=== PATIENT | male | born 1960 | race African-American/Black ===

== ENCOUNTER 2017-01-07 12:04 | Inpatient (IN) | payer BC, MEDICAID, OTHER ==
[~2017-01-07] VITALS: Ht 153.9 cm; Wt 69.4 kg
[~2017-01-07 12:04] MED LIST: ASPI-1159 PO; LEVO100T9 PO; LISI10TA5 PO
[2017-01-07] MEDS ORDERED: SODIUM CHLORIDE 0.9% 10ML VIAL ONE (13:56)
[2017-01-07] MEDS ORDERED: IOHEXOL-300 100 ML BOTTLE ONE (13:56)
[2017-01-07] MEDS ORDERED: SODIUM CHLORIDE 0.9% 1,000 ML IV ONE (14:04)
[2017-01-07 14:47] LABS: BASOPHILS % 1.3 % (0.0-2.0); HEMATOCRIT. 40.4 % (42.0-52.0); HEMOGLOBIN. 13.3 g/dL (14.0-18.0); LYMPHOCYTES % 22.4 % (20.0-50.0); MEAN CORPUSCULAR HEMOGLOBIN 28.3 pg (28.0-32.0); MEAN CORPUSCULAR VOLUME 86.1 fL (80.0-94.0); MEAN PLATELET VOLUME 8.8 fl (7.4-10.4); MONOCYTES % 7.6 % (2.0-8.0); NEUTROPHILS % 61.7 % (40.0-76.0); PLATELET 189 x1000/uL (130-400); RED CELL DISTRIBUTION WIDTH 15.1 % (11.6-14.6)
[2017-01-07 14:58] LABS: CARBON DIOXIDE 29 mEq/L (21-32); CHLORIDE 108 mEq/L (98-107)
[2017-01-07 16:00] VITALS: BP 141/96
[2017-01-07 16:02] LABS: PROTHROMBIN TIME 10.5 sec (9.4-11.6)
[2017-01-07 16:35] LABS: CLARITY URINE CLEAR (CLEAR); COLOR URINE YELLOW (YELLOW); GLUCOSE URINE NEGATIVE (NEGATIVE); KETONES URINE NEGATIVE (NEGATIVE); LEUKOCYTE ESTERASE URINE NEGATIVE (NEGATIVE); NITRITE URINE NEGATIVE (NEGATIVE); OCCULT BLOOD URINE NEGATIVE (NEGATIVE); PROTEIN URINE NEGATIVE (NEGATIVE); SPECIFIC GRAVITY URINE 1.009 (1.005-1.030); UROBILINOGEN URINE 0.2 E.U./dL (0.2-1.0)
[2017-01-07] MEDS ORDERED: MAGNESIUM/ALUMINUM HYDROXIDE/SIMETHICONE 30ML UDC PO PRN (16:45)
[2017-01-07] MEDS ORDERED: ZOLPIDEM TARTRATE 5MG TABLET PO PRN (16:45)
[2017-01-07] MEDS ORDERED: NITROGLYCERIN 0.4MG TABLET SL SL PRN (16:45)
[2017-01-07] MEDS ORDERED: NA PHOS,M-B/NA PHOS,DI-BA ENEMA 118ML PR PRN (16:45)
[2017-01-07] MEDS ORDERED: ONDANSETRON HCL 4MG/2ML VIAL IV PRN (16:45)
[2017-01-07] MEDS ORDERED: ACETAMINOPHEN 325MG TABLET PO PRN (16:45)
[2017-01-07] MEDS ORDERED: GUAIFENESIN 200MG/10ML SUGAR FREE UDC PO PRN (16:45)
[2017-01-07] MEDS ORDERED: DOCUSATE SODIUM 100MG CAPSULE PO PRN (16:45)
[2017-01-07] MEDS ORDERED: CLONIDINE 0.1MG TABLET PO PRN (16:45)
[2017-01-07] MEDS ORDERED: IPRATROPIUM/ALBUTEROL 0.5-3(2.5)MG/3ML NEB INH PRN (16:45)
[2017-01-07] MEDS ORDERED: DIPHENHYDRAMINE 50MG/ML VIAL IV PRN (16:45)
[2017-01-07] MEDS ORDERED: LORAZEPAM 2MG/ML CPJ IV PRN (16:45)
[2017-01-07 17:30] LABS: VITAMIN B12 SERUM 977 pg/mL (211-911)
[2017-01-07 17:41] LABS: FOLIC ACID (FOLATE) SERUM > 20.00 ng/mL (>5.38)
[2017-01-07 18:10] VITALS: BP 141/86
[2017-01-07 20:00] VITALS: BP 133/86
[2017-01-07] MEDS: SUCRALFATE 1 G/10 ML UDC PO SCH (21:10)
[2017-01-07] MEDS: METOPROLOL TARTRATE 25MG TABLET PO SCH (21:10)
[2017-01-08] VITALS: BP 115/73
[2017-01-08 04:00] VITALS: BP 111/75
[2017-01-08] MEDS: SUCRALFATE 1 G/10 ML UDC PO SCH (06:11)
[2017-01-08] MEDS ORDERED: LEVOTHYROXINE SODIUM 100MCG TABLET PO SCH (06:45)
[2017-01-08 07:15] LABS: CARBON DIOXIDE 29 mEq/L (21-32); CHLORIDE 105 mEq/L (98-107)
[2017-01-08 07:52] LABS: EOSINOPHILS % 9.7 % (0.0-5.0); HEMATOCRIT. 39.6 % (42.0-52.0); HEMOGLOBIN. 13.1 g/dL (14.0-18.0); LYMPHOCYTES % 30.2 % (20.0-50.0); MEAN CORPUSCULAR HEMOGLOBIN 28.5 pg (28.0-32.0); MEAN CORPUSCULAR VOLUME 86.2 fL (80.0-94.0); MEAN PLATELET VOLUME 8.8 fl (7.4-10.4); MONOCYTES % 10.3 % (2.0-8.0); NEUTROPHILS % 48.8 % (40.0-76.0); PLATELET 190 x1000/uL (130-400); RED BLOOD CELL COUNT 4.59 mill/uL (4.7-6.1); RED CELL DISTRIBUTION WIDTH 14.7 % (11.6-14.6)
[2017-01-08 07:59] LABS: *AMPHETAMINES SCREEN URINE NEGATIVE (NEGATIVE); *BARBITURATES SCREEN URINE NEGATIVE (NEGATIVE); *BENZODIAZEPINES SCREEN URINE NEGATIVE (NEGATIVE); *COCAINE SCREEN URINE NEGATIVE (NEGATIVE); CANNABINOID URINE SCREEN NEGATIVE (NEGATIVE); METHADONE URINE SCREEN NEGATIVE (NEGATIVE); OPIATES URINE SCREEN NEGATIVE (NEGATIVE); PHENCYCLIDINE URINE SCREEN NEGATIVE (NEGATIVE)
[2017-01-08 08:00] VITALS: BP 128/83
[2017-01-08] MEDS: METOPROLOL TARTRATE 25MG TABLET PO SCH (08:42)
[2017-01-08] MEDS ORDERED: PANTOPRAZOLE SODIUM 40 MG/VIAL IV SCH (09:00)
[2017-01-08 10:45] VITALS: BP 124/72
== END 2017-01-08 11:10 | disposition home or self-care (01) | DRG 254 ==
LOC: ER 13:32 → 5WST 16:32 → EDBEDREQ 16:33 → ENRESERV 16:58
PROVIDERS: ADMIT Internal Medicine; ATTEND Internal Medicine
DX: K64.9 Unspecified hemorrhoids (principal); E44.0 Moderate protein-calorie malnutrition; D62 Acute posthemorrhagic anemia; E03.9 Hypothyroidism, unspecified; E05.90 Thyrotoxicosis, unspecified without thyrotoxic crisis or storm; F12.90 Cannabis use, unspecified, uncomplicated; I10 Essential (primary) hypertension; I25.10 Atherosclerotic heart disease of native coronary artery without angina pectoris; R74.0 Nonspecific elevation of levels of transaminase and lactic acid dehydrogenase [LDH]; J45.909 Unspecified asthma, uncomplicated; Z86.73 Personal history of transient ischemic attack (TIA), and cerebral infarction without residual deficits; Z95.5 Presence of coronary angioplasty implant and graft; I25.2 Old myocardial infarction; Z68.29 Body mass index [BMI] 29.0-29.9, adult; Z91.010 Allergy to peanuts; Z91.013 Allergy to seafood; Z91.018 Allergy to other foods; Z79.82 Long term (current) use of aspirin; Z79.899 Other long term (current) drug therapy; Z72.89 Other problems related to lifestyle
CPT/HCPCS: 36415; 74177; 80053; 80305; 81003; 82607; 82746; 83690; 84443; 85025; 85610; 86850; 86900; 93970; 96360; 96361; 99291; A4216; C9113; G0482; J7030; Q9967

== ENCOUNTER 2019-04-25 04:14 | Emergency (ER) | payer SELFPAY ==
[~2019-04-25] VITALS: Ht 170.2 cm; Wt 88.6 kg
[~2019-04-25 04:14] MED LIST changes: -ASPI-1159 PO; +ASPI-1393 PO; +CARV3.1242 PO
[2019-04-25] MEDS ORDERED: ASPIRIN 325MG EC TABLET PO ONE (08:45)
[2019-04-25 08:54] VITALS: BP 144/79
[2019-04-25 09:08] LABS: HEMATOCRIT. 40.7 % (42.0-52.0); HEMOGLOBIN. 13.4 g/dL (14.0-18.0); LYMPHOCYTES % 21.9 % (20.0-50.0); MEAN CORPUSCULAR HEMOGLOBIN 28.2 pg (28.0-32.0); MEAN CORPUSCULAR VOLUME 85.5 fL (80.0-94.0); MEAN PLATELET VOLUME 8.4 fl (7.4-10.4); MONOCYTES % 7.5 % (2.0-8.0); NEUTROPHILS % 61.6 % (40.0-76.0); PLATELET 202 x1000/uL (130-400); RED BLOOD CELL COUNT 4.76 mill/uL (4.7-6.1); RED CELL DISTRIBUTION WIDTH 14.2 % (11.6-14.6)
[2019-04-25 09:18] LABS: CHLORIDE 109 mEq/L (98-107)
== END 2019-04-25 10:19 | disposition left against medical advice (07) ==
LOC: ER 04:14
DX: R07.89 Other chest pain (principal); R06.02 Shortness of breath; R05 Cough; I10 Essential (primary) hypertension; I25.2 Old myocardial infarction; Z98.890 Other specified postprocedural states; E03.9 Hypothyroidism, unspecified; Z98.61 Coronary angioplasty status; Z79.82 Long term (current) use of aspirin; Z79.899 Other long term (current) drug therapy; Z91.010 Allergy to peanuts
CPT/HCPCS: 36415; 71045; 80053; 83880; 84484; 85025; 93005; 99284